=== PATIENT | female | born 1955 ===

== ENCOUNTER 2019-02-01 15:28 | Outpatient (CLI) | payer BC | END 2019-02-01 15:29 | disposition home or self-care (01) | LOC: C.DEXAIC 15:28 | DX: M81.0 Age-related osteoporosis without current pathological fracture (principal); Z12.31 Encounter for screening mammogram for malignant neoplasm of breast; Z00.00 Encounter for general adult medical examination without abnormal findings ==

== ENCOUNTER 2019-02-22 08:40 | Outpatient (CLI) | payer BC | END 2019-02-22 08:41 | disposition home or self-care (01) | LOC: C.VASC 08:40 ==

== ENCOUNTER 2019-03-18 09:03 | Outpatient (CLI) | payer BC | END 2019-03-18 09:04 | disposition home or self-care (01) | LOC: C.CTH 09:03 | DX: I10 Essential (primary) hypertension (principal) ==